=== PATIENT | female | born 1995 | race Caucasian/White ===

== ENCOUNTER 2017-12-05 18:37 | Emergency (ER) | payer BC ==
[2017-12-05 18:43] VITALS: TEMP 98
[2017-12-05] MEDS ORDERED: PREDNISONE20 MG PO (20:03)
[2017-12-05 20:27] VITALS: BP 103/62; PULSE 76
== END 2017-12-05 20:28 | disposition home or self-care (01) ==
LOC: COL.ER 18:37
DX: T45.2X5A Adverse effect of vitamins, initial encounter (principal); L50.9 Urticaria, unspecified
CPT/HCPCS: J7512